=== PATIENT | male | born 1990 | race Caucasian/White ===

== ENCOUNTER 2025-09-25 18:10 | Emergency (ER) | payer OTHER ==
[~2025-09-25] VITALS: Ht 175.3 cm; Wt 78.0 kg
[2025-09-25 18:23] VITALS: BP 143/91; PULSE 94; RESP 16; TEMP 98; O2SAT 96
[2025-09-25] MEDS ORDERED: BACITRACIN ZINC OINT UDPKT TOP ONE (22:00)
[2025-09-25] MEDS ORDERED: KETOROLAC 30MG/ML VIAL IM ONE (22:00)
[2025-09-25] MEDS ORDERED: BO1 TP (22:20)
[2025-09-25] MEDS ORDERED: ACET-2708 MT (22:20)
== END 2025-09-25 22:47 | disposition home or self-care (01) ==
LOC: ER 18:10
DX: S80.211A Abrasion, right knee, initial encounter (principal); S80.212A Abrasion, left knee, initial encounter; I10 Essential (primary) hypertension; W18.30XA Fall on same level, unspecified, initial encounter; Y93.89 Activity, other specified; Y92.89 Other specified places as the place of occurrence of the external cause; Y99.8 Other external cause status
CPT/HCPCS: 71045; 73560; 99284